=== PATIENT | male | born 1955 | race Caucasian/White ===

== ENCOUNTER 2016-03-28 09:07 | Emergency (ER) | payer MEDICAID | END 2016-03-28 10:36 | disposition home or self-care (01) | LOC: D.ER 09:07 | DX: H66.92 Otitis media, unspecified, left ear (principal); E11.9 Type 2 diabetes mellitus without complications; I10 Essential (primary) hypertension ==

== ENCOUNTER 2017-12-24 16:33 | Emergency (ER) | payer OTHER ==
[~2017-12-24] VITALS: Ht 175.3 cm; Wt 118.2 kg
[2017-12-24 16:37] VITALS: Ht 175.3 cm; Wt 118.2 kg
[2017-12-24] MEDS ORDERED: NORVASC5 MG PO (16:38)
[2017-12-24] MEDS ORDERED: MOBIC7.5 MG PO (16:39)
[2017-12-24] MEDS ORDERED: PRINIVIL20 MG PO (16:39)
[2017-12-24] MEDS ORDERED: GLUCOPHAGE500 MG PO (16:39)
[2017-12-24] MEDS ORDERED: HYDROCHLOROTHIA25 MG PO (16:39)
[2017-12-24] MEDS ORDERED: GLIMEPIRIDE2 MG PO (16:39)
[2017-12-24] MEDS ORDERED: OMEPRAZOLE20 M1 PO (16:40)
[2017-12-24] MEDS ORDERED: ULTRAM50 MG PO (16:40)
[2017-12-24] MEDS ORDERED: NORCO 7.5/325 T1 TA1 PO (18:20)
[2017-12-24 18:33] VITALS: BP 150/94
== END 2017-12-24 18:47 | disposition home or self-care (01) ==
LOC: D.ER 16:33
DX: S80.02XA Contusion of left knee, initial encounter (principal); W18.30XA Fall on same level, unspecified, initial encounter; Y93.89 Activity, other specified; Y92.019 Unspecified place in single-family (private) house as the place of occurrence of the external cause; S80.212A Abrasion, left knee, initial encounter; S93.402A Sprain of unspecified ligament of left ankle, initial encounter; E11.9 Type 2 diabetes mellitus without complications; I10 Essential (primary) hypertension